=== PATIENT | male | born 1950 | race Caucasian/White ===

== ENCOUNTER 2017-12-30 08:31 | Inpatient (IN) ==
[2017-12-30] MEDS ORDERED: Heparin 10,000 UNITS/10 ML Vial (for IV use) IV.PUSH STA (08:38)
--- NOTE | 2017-12-30 08:44 | ED ---
HPI General Chief Complaint: STEMI Alert Stated Complaint: Stemi Alert Time Seen by Provider: 12/30/17 08:35 Source: patient and EMS Mode of arrival: ambulatory Limitations: no limitations History of Present Illness HPI narrative: The patient 59 years old and arrives to the ED as a STEMI alert. He sat down after a large breakfast this morning and developed severe chest pain. EMS reports administering 0.8 mg sublingual nitro as well as 324 mg aspirin and 4 mg morphine. Pain started 45 minutes prior to ER arrival. Blood glucose 148 on scene. Heart rate approximately 70s. Blood pressure 120/74 according to EMS. Upon arrival to the ED the patient complains of 7/10 chest pain and thirst. He states there is radiation to the left arm. He denies a family history coronary artery disease. He has a history of hypertension. There is no history of diabetes or hyperlipidemia. Review of the records show a visit to the family medicine service once previously for chronic musculoskeletal pain and he chose to follow-up elsewhere since. MD complaint: chest pain STEMI Alert: Yes Onset (ago): minute(s) (45) Time: 07:40 Duration: constant Onset: after eating Pain location: left chest Severity: moderate Severity scale (1-10): 7 Quality: aching Pain radiation: LUE Relieving factors: nitroglycerin and medication-other (Morphine) Exacerbating factors: nothing Context: other Associated symptoms: diaphoresis Treatments prior to arrival chest pain: aspirin, nitroglycerin and oxygen Related Data Home Medications Medication Instructions Recorded Confirmed amlodipine 10 mg PO DAILY 12/30/17 12/30/17 Allergies Allergy/AdvReac Type Severity Reaction Status Date / Time No Known Allergies Allergy Verified 12/30/17 09:16 Review of Systems ROS Unobtainable ROS Unobtainable: other PMFSH Medical History Medical History HTN (hypertension) (Acute) Social History Social History Substance History: No History of Abuse Smoking Status: Never smoker How Often Do You Have a Drink Containing Alcohol: Never Recent Travel in [facility] within the Last 8 Weeks: No Recent Out of Country Travel within the Last 8 Weeks: No Exam Narrative Exam Narrative: GENERAL: 67-year-old male well-nourished well-developed moderate to severe distress SKIN: Pale and diaphoretic. HEAD: Atraumatic. Normocephalic. EYES: Pupils equal and round. No scleral icterus. No injection or drainage. ENT: No nasal bleeding or discharge. Mucous membranes pink and moist. NECK: Trachea midline. No JVD. CARDIOVASCULAR: Regular rate and rhythm. No murmur appreciated. RESPIRATORY: No accessory muscle use. Clear to auscultation. Breath sounds equal bilaterally. GASTROINTESTINAL: Abdomen soft, non-tender, nondistended. Hepatic and splenic margins not palpable. MUSCULOSKELETAL: No obvious deformities. No clubbing. No cyanosis. No edema. NEUROLOGICAL: Awake and alert. No obvious cranial nerve deficits. Motor grossly within normal limits. Normal speech. PSYCHIATRIC: Appropriate mood and affect; insight and judgment normal. Course Initial Documented Vital Signs Pulse Oximetry 98 12/30/17 08:35 Last Documented Vital Signs Temperature 98.2 F 12/30/17 08:36 Pulse Rate 67 12/30/17 09:05 Respiratory Rate 22 12/30/17 09:05 Blood Pressure 136/78 12/30/17 09:05 Pulse Oximetry 100 12/30/17 09:05 Critical Care Time Critical Care Time: Yes Total Critical Care Time: 45 Attestation: Aggregate critical care time was 45 minutes. Time to perform other separately billable procedures was not included in the critical care time. My time did not include minutes spent treating any other patients simultaneously or on activities that did not directly contribute to the patient's treatment. The services I provided to this patient were to treat and/or prevent clinically significant deterioration that could result in: Cardiopulmonary arrest, permanent disability I provided critical care services requiring my management, as noted below: Chart data review, documentation time, medication orders and management, vital sign assessments/reviewing monitor data, ordering and reviewing lab tests, ordering and interpreting/reviewing x-rays and diagnostic studies, care of the patient and discussion of the patient with the admitting physicians. Medical Decision Making MDM Narrative Medical decision making narrative: Patient rises STEMI alert. STEMI protocol activated including heparin. Vital signs stable. Dr. Cantu evaluated the patient at the bedside shortly following arrival. The patient will go to the [facility] stat stat. Throughout his ED stay he did complain of persistent pain in about 15 minutes prior to his transfer a patient received 0.75 mg IV hydromorphone and Zofran. Patient request for on-call sausage stringer noted and call was made once a voice message left with the patient was here. A second call was placed at 10:15 AM after the patient had been transferred. Family updated by the undersigned here in the ED. Medical Screen Exam Complete: Yes Emergency Medical Condition: Yes Differential Diagnosis Differential Diagnosis: NSTEMI, unstable angina, coronary vasospasm, PE, PTX, aortic dissection, pericarditis, myocarditis, endocarditis, PNA, esophageal disease, aneurysm, musculoskeletal etiologies, anxiety, cocaine/sympathomimetic abuse Medical Records Medical records reviewed: Yes I reviewed the patient's medical records. 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 Lab Data Result diagrams: 12/30/17 08:40 Lab Results 12/30/17 12/30/17 12/30/17 Range/Units 08:40 08:40 08:40 WBC 11.0 (4.0-11.0) th/mm3 RBC 4.74 (4.50-5.90) mil/mm3 Hgb 14.7 (13.0-17.0) gm/dL POC Hgb (Calc) 12.9 L (13.0-17.0) g/dL Hct 42.9 (39.0-51.0) % POC Hct 38.0 L (39-51.0) % MCV 90.5 (80.0-100.0) fL MCH 31.0 (27.0-34.0) pg MCHC 34.2 (32.0-36.0) % RDW 13.4 (11.6-17.2) % Plt Count 233 (150-450) th/mm3 MPV 8.4 (7.0-11.0) fL Neut % (Auto) 43.6 (16.0-70.0) % Lymph % (Auto) 33.7 (9.0-44.0) % Harney % (Auto) 10.6 H (0.0-8.0) % Eos % (Auto) 11.1 H (0.0-4.0) % Baso % (Auto) 1.0 (0.0-2.0) % Neut # (Auto) 4.8 (1.8-7.7) th/mm3 Lymph # (Auto) 3.7 (1.0-4.8) th/mm3 Harney # (Auto) 1.2 H (0.0-0.9) th/mm3 Eos # (Auto) 1.2 H (0.0-0.4) th/mm3 Baso # (Auto) 0.1 (0.0-0.2) th/mm3 WBC Differential . Differential Comment Auto diff final PT 10.3 (9.8-11.6) sec INR 1.0 Ratio APTT 20.9 L (24.3-30.1) sec POC Sodium 142 (137-144) mmol/L POC Potassium 3.4 L (3.6-5.0) mmol/L POC Chloride 105 (102-111) mmol/L POC BUN 26 H (5-21) mg/dL POC Creatinine 1.3 (0.6-1.3) mg/dL POC Glucose 128 H (68-110) mg/dL Calcium 8.0 L (8.5-10.1) mg/dL Magnesium 2.1 (1.5-2.5) mg/dL Total Creatine Kinase 118 (39-308) U/L CK-MB (CK-2) 1.8 (0.5-3.6) ng/mL Troponin I Less than 0.02 L (0.02-0.05) ng/mL B-Natriuretic Peptide (0-100) pg/mL 12/30/17 Range/Units 08:40 WBC (4.0-11.0) th/mm3 RBC (4.50-5.90) mil/mm3 Hgb (13.0-17.0) gm/dL POC Hgb (Calc) (13.0-17.0) g/dL Hct (39.0-51.0) % POC Hct (39-51.0) % MCV (80.0-100.0) fL MCH (27.0-34.0) pg MCHC (32.0-36.0) % RDW (11.6-17.2) % Plt Count (150-450) th/mm3 MPV (7.0-11.0) fL Neut % (Auto) (16.0-70.0) % Lymph % (Auto) (9.0-44.0) % Harney % (Auto) (0.0-8.0) % Eos % (Auto) (0.0-4.0) % Baso % (Auto) (0.0-2.0) % Neut # (Auto) (1.8-7.7) th/mm3 Lymph # (Auto) (1.0-4.8) th/mm3 Harney # (Auto) (0.0-0.9) th/mm3 Eos # (Auto) (0.0-0.4) th/mm3 Baso # (Auto) (0.0-0.2) th/mm3 WBC Differential Differential Comment PT (9.8-11.6) sec INR Ratio APTT (24.3-30.1) sec POC Sodium (137-144) mmol/L POC Potassium (3.6-5.0) mmol/L POC Chloride (102-111) mmol/L POC BUN (5-21) mg/dL POC Creatinine (0.6-1.3) mg/dL POC Glucose (68-110) mg/dL Calcium (8.5-10.1) mg/dL Magnesium (1.5-2.5) mg/dL Total Creatine Kinase (39-308) U/L CK-MB (CK-2) (0.5-3.6) ng/mL Troponin I (0.02-0.05) ng/mL B-Natriuretic Peptide 29 (0-100) pg/mL Imaging Data Radiologist's impression: Chest X-Ray 12/30/17 08:38 CONCLUSION: Questionable hazy opacity at the left base could be related to technical factors /artifact or could represent small effusion or airspace opacity. If needed, good inspiratory formal PA and lateral views would likely help differentiate. ECG Data EKG Prior to Arrival: Yes (EKG shows sinus rhythm with a rate of 70 ST elevations are present in the 2 3 and 4 with reciprocal changes in III and aVF) Discharge Plan Discharge Disposition Patient Disposition: 30 Still Patient Physicians Team ED Provider: Inder Oropeza Primary Care Provider: UNKNOWN, Attending Provider: Chelsy Cantu Status ED Status: Left Department Discharge Information Discharge Date/Time: 12/30/17 09:08
[2017-12-30] MEDS ORDERED: Sod Chloride 0.9% Inj 1,000 ML IV.SIG SCH (08:45)
[2017-12-30] MEDS ORDERED: fentaNYL Citrate Inj 100 MCG/2 ML Ampul ONE (08:54)
[2017-12-30] MEDS ORDERED: HYDROmorphone PF Inj 2 MG/ML Vial IV.PUSH ONE (08:55)
[2017-12-30 08:56] LABS: Baso # (Auto) 0.1 th/mm3 (0.0-0.2); Eos # (Auto) 1.2 th/mm3 (0.0-0.4); Eos % (Auto) 11.1 % (0.0-4.0); Hematocrit 42.9 % (39.0-51.0); Hemoglobin 14.7 gm/dL (13.0-17.0); Lymph # (Auto) 3.7 th/mm3 (1.0-4.8); Lymph % (Auto) 33.7 % (9.0-44.0); Mean Corpuscular HGB Conc 34.2 % (32.0-36.0); Mean Corpuscular Volume 90.5 fL (80.0-100.0); Mean Platelet Volume 8.4 fL (7.0-11.0); Mono # (Auto) 1.2 th/mm3 (0.0-0.9); Mono % (Auto) 10.6 % (0.0-8.0); Neut # (Auto) 4.8 th/mm3 (1.8-7.7); Neut % (Auto) 43.6 % (16.0-70.0); Platelet Count 233 th/mm3 (150-450); Red Blood Count 4.74 mil/mm3 (4.50-5.90); Red Cell Distribution Width 13.4 % (11.6-17.2)
[2017-12-30] MEDS ORDERED: Heparin 10,000 UNITS/10 ML Vial (for IV use) ONE (09:04)
--- NOTE | 2017-12-30 09:05 | XR ---
EXAM DATE: 12/30/2017 8:38 AM EDT AGE/SEX: 67 years / Male INDICATIONS: Chest pain. CLINICAL DATA: This is the patient's initial encounter. Patient reports that signs and symptoms have been present for 1 day and indicates a pain score of 10/10. MEDICAL/SURGICAL HISTORY: None. None. COMPARISON: No prior exams available for comparison. FINDINGS: Portable AP view of the chest demonstrates a normal size cardiac silhouette. Lungs are underinflated. Questionable hazy opacity in the left inferior hemithorax. No pneumothorax is identified. Right lung demonstrates no acute finding. There may be a calcified granuloma in the right lower lung zone. Bone s and soft tissues demonstrate no acute abnormality. CONCLUSION: Questionable hazy opacity at the left base could be related to technical factors/artifact or could re present small effusion or airspace opacity. If needed, good inspiratory formal PA and lateral views w ould likely help differentiate. Electronically signed by: Massimo Swenson MD 12/30/2017 9:04 AM EDT
[2017-12-30 09:11] LABS: Prothrombin Time 10.3 sec (9.8-11.6)
[2017-12-30 09:14] LABS: Activated Partial Thrombo Time 20.9 sec (24.3-30.1)
[2017-12-30 09:17] LABS: Magnesium 2.1 mg/dL (1.5-2.5)
[2017-12-30 09:20] LABS: Creatine Kinase 118 U/L (39-308)
[2017-12-30] MEDS ORDERED: Heparin/NS PF Inj 1,000 ML ONE (09:29)
[2017-12-30 09:31] LABS: Creatine Kinase MB 1.8 ng/mL (0.5-3.6)
[2017-12-30] MEDS ORDERED: Cangrelor Inj 50,000 MCG Vial ONE (09:40)
[2017-12-30] MEDS ORDERED: Iohexol 350 MG/ML 100 ML Vial (for Cath Lab) IVCONTRAST ONE (10:36)
--- NOTE | 2017-12-30 10:51 | CATHPROC ---
[facility] HIS Report Study Information Study Number Admission Scheduled Start Study Start [id number] Dec 30 2017 8:47AM 12/30/2017 Dec 30 2017 9:04AM [place] [facility] Cardiac Catheterization Admit Source Facility Department Emergency department [facility] - Computer Systems Technology Instructor Physician and Clinical Staff Initial Chelsy Rea Deputy Of Counter Intelligence Becky Goodrich,TAMIKO Deputy Of Counter Intelligence Becky Carlson RN/BA Recorder Nafisa Cordon RT(R) (BS) Scrub Eduard Regan RCIS(BS) Procedures Performed Procedure Location (Site) Vessel Name Coronary Angiograms LCA Left Coronary Coronary Angiograms RCA Right Coronary Drug Eluting Inflatio LAD Prox Left Coronary L Heart Cath PTCA LAD Prox Left Coronary PTCA Radial (right) Radial Art. Wire insertion Fem Art (right) Femoral Art Wire insertion Radial (right) Radial Art. Equipment Time Tractor Trailer Driver Description Size Mfg Part Number Used/Scraped 10:01 [employer] WIRE, DOC EXTENSION 145CM 145CM [id number] *[id number] Used TRANSDUCER, TRUWAVE [id number] 09:06 HEIN FRYE * Used W/STOCKCOCK *[id number] 09:25 [employer] WIRE, SAMURAI 190CM 190CM Used *[id number] 09:47 [employer] WIRE, SAMURAI 190CM 190CM Used *[id number] 09:48 [employer] WIRE, SAMURAI 190CM 190CM Used *[id number] 09:06 [facility] SUPPORT, ARTERIAL ADULT [id number] Used [id number] 09:06 [employer] NEEDLE, PERCUTANEOUS ENTRY 21G X 2.5CM Used *[id number] *[id number] *[id number] 09:06 [employer] BLANKET,WARM AIR CCL * Used *[id number] 09:06 [employer] PACK, CCL CUSTOM * Used *[id number] 09:27 [employer] BALLOON, 2.5 X 12MM EUPHORA 12MM Used *[id number] 10:22 [employer] BALLOON, 3.0 X 12MM EUPHORA 12MM Used *[id number] BALLOON, 3.0 X 12MM NC [id number] 10:07 [employer] 12MM Used EUPHORA *[id number] BALLOON, 3.25 X 8MM NC [id number] 10:30 [employer] 8MM Used EUPHORA *[id number] 09:20 [employer] JR 4.0 DXTERITY CATHETER FR 6 [id number] 10:26 [employer] STENT, 3.0 15MM CODY 3.0 15MM Used *[id number] 09:35 [employer] 30 SAMANTHA INDEFLATOR Used *[id number] BAND, RADIAL COMPRESSION TR [id number] 10:36 [employer] 29CM Used LARGE 29 *[id number] 09:18 [employer] SHEATH, FR6 PRELUDEIDEAL FR 5/6 Used *[id number] 09:06 [employer] WIRE, EXCHANGE 260CM 3MMJ 260CM Used *[id number] 09:06 NAMIC MANIFOLD, 4 PORT * Used *[id number] 09:06 [employer] OMNIPAQUE, 350 MG, 150ML 150ML [id number] Used 10:30 [employer] OMNIPAQUE, 350 MG, 150ML 150ML [id number] Used 10:30 [employer] OMNIPAQUE, 350 MG, 150ML 150ML [id number] Used 10:30 [employer] OMNIPAQUE, 350 MG, 50ML 50ML [id number] Used WIRE, RUNTHROUGH NS FLOPPY 25-1011 10:14 [employer] 180CM Used .014 180CM *[id number] WIRE, RUNTHROUGH NS FLOPPY 25-1011 10:18 [employer] 180CM Used .014 180CM *[id number] WIRE, RUNTHROUGH NS FLOPPY 25-1011 09:56 [employer] 180CM Used .014 180CM *[id number] CATHETER, TURNPIKE SPIRAL 09:49 [employer] * 5642 *[id number] Used 135CM Equipment Model, Serial, Lot Number and Expiration Data Description Model Number Serial Number Lot Number Expiration Date JR 4.0 DXTERITY CATHETER [id number] 09-27-2020 STENT, 3.0 15MM CODY [id number] 07-18-2019 WIRE, SAMURAI 190CM [id number] 08-13-2020 WIRE, SAMURAI 190CM [id number] 08-13-2020 History: Current Medications Medication Dosage/Unit Route Frequency Last Date/Time Taken ASA HEPARIN History: Allergies Allergy Reaction No Known Allergies History: Risk Factors Family History of Hypertension Dyslipidemia Previous IN Previous Heart Failure Premature CAD Yes No No No No Prior Valve Prior PCI Prior CABG Surgery No No No Cerebrovascular Peripheral Artery Chronic Lung On Dialysis Diabetes Disease Disease Disease No No No No No History: Symptoms/Diagnosis Selection Items Chest pain History: Stress Tests Stress or Imaging Studies Performed No History: Other Current Smoker No Labs Hgb (g/dl) Hct (%) WBC (l/cumm) Platelets (thousands) 11.60-17.00 35.00-51.00 4.00-11.00 150.00-450.00 12.9 38 11 233 Glucose (mg/dl) BUN (mg/dl) Creatinine (mg/dl) BUN:Creatinine (1:x) 74.00-106.00 7.00-18.00 0.50-1.30 10.00-20.00 128 26 1.3 20 Na (meq/l) K (meq/l) 136.00-145.00 3.50-5.10 160 3.4 INR (PTT:PT) 0.90-1.10 1 Troponin I (ng/ml) CPK-MB (ng/ML) 0.02-0.05 0.50-3.60 0.02 1.8 Medication Medication Total Dose (Bolus/Oral) Medication Total Dosage/Unit 1% XYLOCAINE 1 mL BRILINTA 180 mg FENTANYL 75 mcg HEPARIN 7000 units MORPHINE 4 mg NTG (IC) 400 mcg RADIAL COCKTAIL 5 mL (Bolus) VERSED 5 mg Medications (Bolus/Oral) Medication Time Given Dosage/Unit Administered By Reason VERSED 12/30/2017 9:14:11 AM 2 mg Becky Carlson 2 mg VERSED given in lab by Becky Carlson, RN/BA in Left Antecubital via Peripheral IV. FENTANYL 12/30/2017 9:15:22 AM 50 mcg Becky Carlson 50 mcg FENTANYL given in lab by Becky Carlson, RN/BA in Left Antecubital via Peripheral IV. 1% XYLOCAINE 12/30/2017 9:16:57 AM 1 mL Chelsy Cantu 1 mL 1% XYLOCAINE given in lab by Chelsy Cantu in Right Radial via Subcutaneous. VERSED 12/30/2017 9:18:12 AM 1 mg Becky Carlson 1 mg VERSED given in lab by Becky Carlson RN/SRAVANTHI in Left Antecubital via Peripheral IV. Ntg 200mcg Verapamil 2.5mg Heparin RADIAL COCKTAIL 12/30/2017 9:18:12 AM 5 mL (Bolus) Chelsy Cantu 2000U 5 mL (Bolus) RADIAL COCKTAIL given in lab by Chelsy Cantu via Radial. Using [Solution Name]. Reason: Ntg 200mcg Verapamil 3mg FENTANYL 12/30/2017 9:20:21 AM 25 mcg Becky Carlson 25 mcg FENTANYL given in lab by Becky Carlson RN/SRAVANTHI in Left Antecubital via Peripheral IV. HEPARIN 12/30/2017 9:21:21 AM 5000 units Becky Carlson 5000 units HEPARIN given in lab by Becky Carlson RN/SRAVANTHI in Left Antecubital via Peripheral IV. MORPHINE 12/30/2017 9:44:36 AM 4 mg Becky Carlson 4 mg MORPHINE given in lab by Becky Carlson RN/SRAVANTHI via Peripheral IV. VERSED 12/30/2017 9:49:32 AM 2 mg Becky Carlson 2 mg VERSED given in lab by Becky Carlson RN/SRAVANTHI in Left Antecubital via Peripheral IV. NTG (IC) 12/30/2017 9:57:03 AM 200 mcg Eduard Regan 200 mcg NTG (IC) given in lab by Eduard Regan RCIS(BS) via Intra-coronary. HEPARIN 12/30/2017 10:21:34 AM 2000 units Becky Carlson 2000 units HEPARIN given in lab by Becky Carlson RN/SRAVANTHI in Left Antecubital via Peripheral IV. NTG (IC) 12/30/2017 10:34:28 AM 200 mcg Eduard Regan 200 mcg NTG (IC) given in lab by Eduard Regan RCIS(BS) via Intra-coronary. BRILINTA 12/30/2017 10:49:28 AM 180 mg Becky Goodrich 180 mg BRILINTA given in lab by Becky Goodrich RN via Oral. Medication (Drip) Medication Time Given Dosage/Unit Concentration/Unit Diluent (ml) Solution IV Solutions 12/30/2017 9:08:21 AM 0 mL (IV) 1000 NaCl .9 IV Solutions given by Becky Goodrich RN via Peripheral IV. Pump/Drip Flow = 30 ml/hr using NaCl .9. KENGREAL BOLUS 12/30/2017 9:46:39 AM 30 mcg/kg 30 mcg/kg KENGREAL BOLUS given in lab by Becky Goodrich RN in Left Antecubital via Peripheral IV. A mount given = 3270 mcg. KENGREAL DRIP 12/30/2017 9:45:54 AM 4 mcg/kg/min 50 mg 250 NaCl .9 4 mcg/kg/min KENGREAL DRIP given in lab by Becky Goodrich, TAMIKO via Peripheral IV. Pump/Drip Flow = 13 0.8 ml/hr using NaCl .9 with a concentration of 50 mg in 250 ml. Initial Case Assessment Cardiovascular HR Rhythm NIBP Chest Pain 67 stemi 128/78 9 Edema Present Skin color Skin Mild Normal Warm Dry Circulatory - Right Pulses Dorsalis Pedis Femoral Radial 1 2 2 Scale (0,1,2,3,4,d) Scale (0,1,2,3,4,d) Circulatory - Lower Extremities Color Lower Right Color Lower Left Normal Normal Neurological State Oriented to time-place- Alert Moves all extremities person Respiration - General Respiration Rate SpO2 (%) O2 (lpm) (B/min) 14 100 15 Chronological Log Time Study Chronological Log 8:56:41 Emergency Room notified that Computer Systems Technology Instructor is ready. 9:06:11 Patient arrived via Bed. 9:06:12 Patient Name, D.O.B, / Armband Verified By R.N. 9:08:21 IV Solutions given by Becky Goodrich, TAMIKO via Peripheral IV. Pump/Drip Flow = 30 ml/hr usin g NaCl .9. 9:13:25 Right Radial and groin(s) prepped with 2% chlorhexidine, and draped after a 3 min. waiting time. 9:14:11 2 mg VERSED given in lab by Becky Carlson, RN/BA in Left Antecubital via Peripheral IV. 9:15:22 50 mcg FENTANYL given in lab by Becky Carlson, RN/BA in Left Antecubital via Peripheral IV. Vitals capture started with the following parameters, Patient=Adult, Interval=5 min, Initial Pr dfqpir=683 mmHg, 9:15:25 Deflation Rate=5 mmHg, Cuff placed on Left Arm 9:15:36 Consent signed by the physician and the patient and verified by the Computer Systems Technology Instructor staff. 9:15:45 Pre-op and post- op instructions given; patient acknowledges understanding of instructions. 9:15:47 Presedation assessment performed by Computer Systems Technology Instructor RN. 9:15:51 Allens test performed on the right radial and ulnar artery. 9:16:09 Patient has been NPO for Less than 6Hrs. 9:16:15 Disposable Defibrillator Pads Placed On Patient. 9:16:16 [employer] Protected 9:16:17 A # 18 IV was noted in the Antecubital (right). Grade = 0 9:16:18 A # 18 IV was noted in the Antecubital (left). Grade = 0 9:16:22 History and physical on the chart or being dictated. Assessment: Initial Case, HR=67 BPM, Rhythm=stemi, PSGI=237/78 mmhg, Chest Pain=9, Edema=Mild, Color=Normal, Skin = Warm, Dry Right Pulses: Lucio Ped=1, Femoral=2, Radial=2 9:16:23 Lower Right Extremities: Color=Normal Lower Left Extremities: Color=Normal Neurological: State=Alert, Ox3, MORA Respiration: Resp=14 B/min, AiJ6=173 %, O2=15 lpm Time Out. Correct patient, correct procedure, correct physician, labs, allergies, and equipment verified with lab instructor 9:16:41 team present. Fire risk assesment completed (see hard stop sheet for coding). Time Out Concu rred by MD and individual staff in procedure. 9:16:45 Case Start 9:16:46 HR=66 bpm, TGHL=320/96 mmhg, SyU8=044.0 %, Resp=5 B/min, Pain=9, Steve=10, Cm=2 9:16:57 1 mL 1% XYLOCAINE given in lab by Chelsy Cantu in Right Radial via Subcutaneous. 9:17:09 Reference ECG taken 9:17:19 Access site was Right Radial Artery . 9:17:27 A SHEATH, FR6 PRELUDEIDEAL FR 5/6 was advanced into the Radial (right) using the Percutaneou s technique. 9:18:12 1 mg VERSED given in lab by Becky Carlson, RN/BA in Left Antecubital via Peripheral IV. 5 mL (Bolus) RADIAL COCKTAIL given in lab by Cantu, Aalok via Radial. Using [Solution Name]. [place] son: Ntg 200mcg 9:18:12 Verapamil 3mg 9:18:45 Pressure channel 1 zeroed. A JR 4.0 DXTERITY CATHETER FR 6 was advanced over a wire. OMNIPAQUE, 350 MG, 150ML 150ML was use d for 9:20:05 injections. 9:20:21 25 mcg FENTANYL given in lab by Becky Carlson RN/SRAVANTHI in Left Antecubital via Peripheral IV. 9:21:10 HR=68 bpm, NNUW=417/83 mmhg, CpJ1=480.0 %, Resp=11 B/min, Pain=9, Steve=10, Cm=2 9:21:21 5000 units HEPARIN given in lab by Becky Carlson RN/SRAVANTHI in Left Antecubital via Peripheral IV. Recorded Pressure: Ao, HR=64, Condition=Condition 1 9:21:27 (Aorta) Ao 130/78/102 9:21:54 The RCA was injected and visualized at various angles. OMNIPAQUE, 350 MG, 150ML 150ML used. After removing the current catheter a XB 3.0 GUIDE CATHETER FR 6 was advanced over a WIRE, EXCHA NGE 260CM 9:22:53 3MMJ 260CM. 9:25:33 The LCA was injected and visualized at various angles. OMNIPAQUE, 350 MG, 150ML 150ML used. 9:26:11 HR=71 bpm, ZIGL=669/87 mmhg, BpE6=207.0 %, Resp=14 B/min, Pain=9, Steve=10, Cm=2 9:28:03 A WIRE, SAMURAI 190CM 190CM was inserted via Radial (right). 9:31:01 A BALLOON, 2.5 X 12MM EUPHORA 12MM was inserted over WIRE, SAMURAI 190CM 190CM via the Radia l (right). 9:31:10 HR=69 bpm, YNOY=497/87 mmhg, DvB3=750.0 %, Resp=12 B/min, Pain=9, Steve=10, Cm=2 9:34:02 Interventional wire has crossed the lesion A BALLOON, 2.5 X 12MM EUPHORA 12MM over a WIRE, SAMURAI 190CM 190CM in the LAD Prox was inflated using a 9:35:03 30 SAMANTHA INDEFLATOR at 8 samantha for 10 sec. 9:36:09 HR=69 bpm, HDWD=024/87 mmhg, UgC4=331.0 %, Resp=23 B/min, Pain=9, Steve=10, Cm=2 9:39:05 Balloon Removed 9:39:18 Wire removed for reshaping 9:40:00 A WIRE, MERONURAI 190CM 190CM was inserted via Radial (right). 9:41:10 HR=72 bpm, QQIW=804/90 mmhg, SpO2=97.0 %, Resp=15 B/min, Pain=9, Steve=10, Cm=2 9:44:32 A balloons was inserted over WIRE, MERONURAI 190CM 190CM via the Radial (right). 9:44:36 4 mg MORPHINE given in lab by Becky Carlson, RN/BA via Peripheral IV. 4 mcg/kg/min KENGREAL DRIP given in lab by Becky Goodrich RN via Peripheral IV. Pump/Drip Flow = 130.8 ml/hr 9:45:54 using NaCl .9 with a concentration of 50 mg in 250 ml. 9:46:11 HR=72 bpm, GZRQ=213/92 mmhg, Resp=8 B/min, Pain=9, Steve=10, Cm=2 30 mcg/kg KENGREAL BOLUS given in lab by Becky Goodrich RN in Left Antecubital via Peripheral IV. Amount given = 9:46:39 3270 mcg. Recorded Pressure: LV, HR=75, Condition=Condition 1 9:47:17 (Left Ventricle) LV 135/19/39 Recorded Pressure: LV, Ao, HR=73, Condition=Condition 1 9:47:28 (Left Ventricle) LV 140/18/40, (Aorta) Ao 145/82/105 9:47:58 Balloon Removed. 9:48:03 Wire removed 9:48:13 A WIRE, MERONURAI 190CM 190CM was inserted via Radial (right). A CATHETER, TURNPIKE SPIRAL 135CM * was advanced over a wire. OMNIPAQUE, 350 MG, 150ML 150ML wa s used 9:48:32 for injections. 9:49:32 2 mg VERSED given in lab by Becky Carlson, RN/BA in Left Antecubital via Peripheral IV. 9:51:12 HR=70 bpm, FBJL=807/89 mmhg, OtM5=854.0 %, Resp=9 B/min, Pain=9, Steve=10, Cm=2 9:56:14 HR=67 bpm, NRLE=250/82 mmhg, WgD8=030.0 %, Resp=7 B/min, Pain=9, Steve=10, Cm=2 9:57:03 200 mcg NTG (IC) given in lab by Eduard Regan RCIS(BS) via Intra-coronary. 9:58:38 A WIRE, SAMURAI 190CM 190CM was inserted via Radial (right). 10:01:11 HR=73 bpm, YJIH=116/89 mmhg, Resp=17 B/min, Pain=9, Steve=10, Cm=2 10:02:08 A WIRE, DOC EXTENSION 145CM 145CM was used 10:03:10 Wire removed turnpike A BALLOON, 2.5 X 12MM EUPHORA 12MM was inserted over WIRE, RUNTHROUGH NS FLOPPY .014 180CM 180C M via 10:04:17 the Radial (right). A BALLOON, 2.5 X 12MM EUPHORA 12MM over a WIRE, SAMURAI 190CM 190CM in the Radial (right) was i nflated 10:04:42 using a 30 SAMANTHA INDEFLATOR at 12 samantha for 15 sec. A BALLOON, 2.5 X 12MM EUPHORA 12MM over a WIRE, SAMURAI 190CM 190CM in the Radial (right) was i nflated 10:05:05 using a 30 SAMANTHA INDEFLATOR at 14 samantha for 10 sec. 10:06:12 HR=68 bpm, REVW=480/84 mmhg, XrP5=239.0 %, Resp=16 B/min, Pain=9, Steve=10, Cm=2 10:08:32 Balloon Removed A BALLOON, 3.0 X 12MM NC EUPHORA 12MM was inserted over WIRE, RUNTHROUGH NS FLOPPY .014 180CM 1 80CM 10:08:39 via the Radial (right). A BALLOON, 3.0 X 12MM NC EUPHORA 12MM over a WIRE, RUNTHROUGH NS FLOPPY .014 180CM 180CM in the LAD 10:09:12 Prox was inflated using a 30 SAMANTHA INDEFLATOR at ~SAMANTHA~ samantha for ~SECONDS~ sec. 10:11:13 HR=68 bpm, LDNU=023/84 mmhg, YdG0=633.0 %, Resp=9 B/min, Pain=9, Steve=10, Cm=2 10:15:26 A WIRE, RUNTHROUGH NS FLOPPY .014 180CM 180CM was inserted via Radial (right). 10:16:12 HR=66 bpm, XAVY=316/89 mmhg, OuB1=081.0 %, Resp=13 B/min, Pain=9, Steve=10, Cm=2 10:17:41 Wire removed 10:17:46 A WIRE, RUNTHROUGH NS FLOPPY .014 180CM 180CM was inserted via Radial (right). 10:21:15 HR=64 bpm, VAIV=943/88 mmhg, IzM4=582.0 %, Resp=9 B/min, Pain=9, Steve=10, Cm=2 10:21:34 2000 units HEPARIN given in lab by Becky Carlson, RN/BA in Left Antecubital via Peripheral IV. A BALLOON, 3.0 X 12MM NC EUPHORA 12MM over a WIRE, RUNTHROUGH NS FLOPPY .014 180CM 180CM in the LAD 10:24:02 Prox was inflated using a 30 SAMANTHA INDEFLATOR at 8 samantha for 10 sec. A BALLOON, 3.0 X 12MM NC EUPHORA 12MM over a WIRE, RUNTHROUGH NS FLOPPY .014 180CM 180CM in the LAD 10:24:35 Prox was inflated using a 30 SAMANTHA INDEFLATOR at 14 samantha for 30 sec. 10:26:14 HR=66 bpm, YFWT=625/84 mmhg, NlO3=725.0 %, Resp=11 B/min, Pain=9, Steve=10, Cm=2 10:26:47 Balloon Removed A STENT, 3.0 15MM CODY 3.0 15MM was advanced through a XB 3.0 GUIDE CATHETER FR 6 over a WIRE, 10:27:37 RUNTHROUGH NS FLOPPY .014 180CM 180CM. A STENT, 3.0 15MM CODY 3.0 15MM was deployed using a 30 SAMANTHA INDEFLATOR at 14 atmospheres for 2 0 seconds in 10:27:57 the LAD Prox. 10:29:17 Delivery device removed A BALLOON, 3.25 X 8MM NC EUPHORA 8MM was inserted over WIRE, RUNTHROUGH NS FLOPPY .014 180CM 1 80CM 10:30:34 via the Radial (right). 10:31:13 HR=65 bpm, MYUM=330/88 mmhg, SpO2=86.0 %, Resp=10 B/min, Pain=9, Steve=10, Cm=2 A BALLOON, 3.25 X 8MM NC EUPHORA 8MM over a WIRE, RUNTHROUGH NS FLOPPY .014 180CM 180CM in the LAD 10:32:54 Prox was inflated using a 30 SAMANTHA INDEFLATOR at 20 samantha for 15 sec. 10:34:03 Balloon Removed 10:34:09 Wire removed 10:34:28 200 mcg NTG (IC) given in lab by Eduard Regan RCIS(BS) via Intra-coronary. 10:35:45 The LCA was injected and visualized at various angles. OMNIPAQUE, 350 MG, 150ML 150ML use d. 10:35:56 A WIRE, EXCHANGE 260CM 3MMJ 260CM was inserted via Radial (right). 10:36:12 Catheter was removed 10:36:14 HR=68 bpm, AKDE=079/83 mmhg, SpO2=94.0 %, Resp=12 B/min, Pain=9, Steve=10, Cm=2 10:36:14 Wire removed 10:36:29 Case End (Physician broke scrub) 10:36:52 Catheter(s) removed without difficulty Radial Compression Device Used. 12 mLs of air placed in BAND, RADIAL COMPRESSION TR LARGE 29 2 9CM. Affected 10:36:58 hand 96 % O2 saturation. 10:36:59 No case complications noted. 10:37:02 Bedside Report will be given. 10:37:03 Implantable Device card placed in patient's chart. 10:37:06 A Left Heart Cath was performed. 10:41:13 HR=79 bpm, NPAM=660/83 mmhg, SpO2=97.0 %, Resp=15 B/min, Pain=9, Steve=10, Cm=2 10:45:38 Vitals capture stopped. 10:47:01 Patient moved to stretcher 10:49:28 180 mg BRILINTA given in lab by Becky Goodrich, RN via Oral. End Study - Contrast Media Used In Study Contrast Total Opened (mL) Total Used (mL) Total Wasted (mL) Omnipaque 275 275 0 End Study - Maximum Contrast Load Max Contrast Load (mL) 419.2 End Study - Radiation Exposure Fluoro Time (minutes) 39.3 End Study - Sheaths Sheaths Pulled By Sheath Hold Time (min) Eduard Regan End Study - Patient Disposition Complications Transferred To Interventional Outcome No Telemetry Bed successful
[2017-12-30 11:38] LABS: Cholesterol 93 mg/dL (120-200); Triglycerides 221 mg/dL (42-150)
[2017-12-30 11:40] LABS: LDL Cholesterol,Calculated 17 mg/dL (0-99)
--- NOTE | 2017-12-30 11:51 | ECG ---
Date Performed: 12/30/2017 Time Performed: 08:34:41 PTAGE: 67 years EKG: Baseline artifact present Sinus rhythm WITH OCCASIONAL SUPRAVENTRICULAR PREMATURE COMPLEXES LEFT ANTERIOR FASCICULAR BLOCK POSSIBLE ANTERIO R MYOCARDIAL INFARCTION ST ELEVATION, CONSIDER SEPTAL INJURY ACUTE [place] Clinical correlation is r ecommended NO PREVIOUS TRACING DOCTOR: Edwin Bolaños Interpretating Date/Time 12/30/2017 11:50:53
--- NOTE | 2017-12-30 18:35 | P.HPCA ---
History of Present Illness Service: Interventional Cardiology Primary Care Physician: UNKNOWN Chief Complaint: Chest Pain History of Present Illness: Mr. Carreon is a very pleasant 67 year old gentleman with a past medical history significant for HTN, HLD who present to the ER with complaints of substernal chest pain that began an hour prior to the arrival to the ER after eating breakfast. He had associated symptoms of nausea and diaphoresis. He reports having a stress test many years ago that was normal. He has not been having chest pain with exertion. EKG showed anterior STEMI and the labor and delivery nurse was activated. He was started on Heparin IV infusion, ASA 325mg, and was given sublingual NTG without improvement in his chest pain. Currently he is hemodynamically stable. No malignancy, no elective surgeries plan, no history of bleeding, and no other contraindications to drug eluting stents. - Diagnosis (1) ST elevation (STEMI) myocardial infarction involving left anterior descending coronary artery (2) HTN (hypertension) (3) Hyperlipidemia Inpatient Certification: I certify that the inpatient services were ordered in accordance with Medicare regulations governing the order. This includes certification that hospital inpatient services are reasonable and necessary and in the case of services not specified as inpatient-only under 42 CFR 419.22(n), that they are appropriately provided as inpatient services in accordance to with the 2-midnight benchmark under 43 CFR 412.3(e) Estimated Total Length of Stay (Days): 2 Plans for Post Hospital Care: Home Review of Systems All other systems reviewed negative except as stated in HPI [facility] - History History Provided By: Patient, Surveyor Mine / EMT - Medical History Medical History: Medical History (Last Updated 12/30/17 @ 18:30 by Chelsy Cantu MD) HTN (hypertension) Hyperlipemia Hyperlipemia - Tobacco History Smoking Status: Never smoker - Alcohol History How Often Do You Have a Drink Containing Alcohol: Never - Substance Use History Substance History: No History of Abuse - Travel History Recent Travel in the [place] Within the Last 8 Weeks: No Recent Travel Out of the Country Within the Last 8 Weeks: No - Immunization History Tetanus Immunization: Unsure Medications and Allergies Active Medications: Active Medications Atorvastatin Calcium (Lipitor) 80 mg PO HS MARILIN Carvedilol (Coreg) 3.125 mg PO BID MARILIN Sodium Chloride (Ns Inj) 1,000 mls @ 30 mls/hr IV.SIG .Q24H MARILIN Stop: 12/31/17 08:44 Last Admin: 12/30/17 08:44 Dose: 30 mls/hr Nitroglycerin (Nitro-Bid 2% Oint) 1 inch TOPICAL Q6HR MARILIN Last Admin: 12/30/17 17:08 Dose: 1 inch Ondansetron HCl (Zofran Inj) 4 mg IV.PUSH Q6H PRN PRN Reason: NAUSEA OR VOMITING Sodium Chloride (Ns Flush) 2 ml IV.FLUSH PRN PRN PRN Reason: FLUSH AFTER USING IV ACCESS Sodium Chloride (Ns Inj) 2 ml IV.FLUSH BID MARILIN Sodium Chloride (Ns Inj) 2 ml IV.FLUSH UNSCH PRN PRN Reason: FLUSH AFTER USING IV ACCESS Allergies Allergy/AdvReac Type Severity Reaction Status Date / Time No Known Allergies Allergy Verified 12/30/17 09:16 Home Medications Medication Instructions Recorded Confirmed Type amlodipine 10 mg PO DAILY 12/30/17 12/30/17 History Exam Vital signs: Vital Signs 12/30/17 08:35 12/30/17 08:36 12/30/17 08:38 Temperature 98.2 F Pulse Rate 72 Respiratory Rate 22 Blood Pressure 130/81 Pulse Oximetry 98 100 100 12/30/17 08:55 12/30/17 09:05 12/30/17 10:42 Temperature 98.4 F Pulse Rate 69 67 65 Respiratory Rate 22 20 Blood Pressure 132/67 136/78 125/87 Pulse Oximetry 100 94 L 12/30/17 11:00 12/30/17 12:00 12/30/17 13:00 Temperature Pulse Rate 64 66 66 Respiratory Rate Blood Pressure Pulse Oximetry 12/30/17 14:00 12/30/17 15:00 12/30/17 16:00 Temperature 98.5 F Pulse Rate 66 66 66 Respiratory Rate 18 Blood Pressure 121/80 Pulse Oximetry 97 12/30/17 16:08 12/30/17 17:00 Temperature Pulse Rate 80 Respiratory Rate Blood Pressure Pulse Oximetry 97 Intake & Output 12/29/17 12/30/17 12/30/17 18:59 06:59 18:59 Intake Total 1210 / 1210 Balance 1210 / 1210 Weight 109 kg Intake: IV 10 / 10 Heparin/NS PF Inj 1,000 ML @ 0 10 / 10 mls/hr .ROUTE .[facility] Rx#: [id number] Anesthesia Amount 1200 / 1200 Other: Date of Last Bowel Movement 12/30/17 - Constitutional moderate distress, diaphoretic - Routine HEENT Exam Head: Present: normocephalic Eye: Present: EOMI, PERRL ENT: Present: dentition normal - Routine Neck Exam Absent: JVD (unable to assess secondary to body habitus) - Routine Chest/Breast/Axilla Exam Chest wall: Absent: tenderness - Routine Respiratory Exam Present: accessory muscle use, decreased breath sounds - Routine Cardiovascular Exam Present: S1, S2, tachycardia. Absent: murmur - Routine Abdominal Exam Present: soft, normoactive bowel sounds - Routine Extremities Exam Absent: edema - Routine Neurological Exam Present: alert, oriented X3 Results 12/30/17 08:40 Cardiac Enzymes 12/30/17 12/30/17 12/30/17 Range/Units 08:40 08:40 08:40 CK-MB (CK-2) 1.8 (0.5-3.6) ng/mL Troponin I Less than 0.02 L Less than 0.02 L (0.02-0.05) ng/mL B-Natriuretic Peptide 29 (0-100) pg/mL 12/30/17 Range/Units 16:24 CK-MB (CK-2) (0.5-3.6) ng/mL Troponin I 20.20 H* (0.02-0.05) ng/mL B-Natriuretic Peptide (0-100) pg/mL Coagulation 12/30/17 12/30/17 Range/Units 08:40 08:40 PT 10.3 (9.8-11.6) sec APTT 20.9 L (24.3-30.1) sec B-Natriuretic Peptide 29 (0-100) pg/mL Lipids 12/30/17 Range/Units 08:40 Triglycerides 221 H (42-150) mg/dL Cholesterol 93 L (120-200) mg/dL HDL Cholesterol 32.0 L (40.0-60.0) mg/dL Cholesterol/HDL Ratio 2.90 Ratio CBC 12/30/17 Range/Units 08:40 WBC 11.0 (4.0-11.0) th/mm3 RBC 4.74 (4.50-5.90) mil/mm3 Hgb 14.7 (13.0-17.0) gm/dL Hct 42.9 (39.0-51.0) % Plt Count 233 (150-450) th/mm3 Neut # (Auto) 4.8 (1.8-7.7) th/mm3 Lymph # (Auto) 3.7 (1.0-4.8) th/mm3 [place] # (Auto) 1.2 H (0.0-0.9) th/mm3 Eos # (Auto) 1.2 H (0.0-0.4) th/mm3 Baso # (Auto) 0.1 (0.0-0.2) th/mm3 Comprehensive Metabolic Panel 12/30/17 Range/Units 08:40 Calcium 8.0 L (8.5-10.1) mg/dL Intake and Output 12/30/17 12/30/17 12/30/17 06:59 14:59 22:59 Intake Total 1210 / 1210 Balance 1210 / 1210 Intake: IV 10 / 10 Heparin/NS PF Inj 1,000 ML @ 0 10 / 10 mls/hr .[facility]TE [facility] Rx#: [id number] Anesthesia Amount 1200 / 1200 Other: Date of Last Bowel Movement 12/30/17 12/30/17 Weight 109 kg Patient Weight 12/31/17 06:59 Weight 109 kg - Imaging and Cardiology Imaging: Impressions Chest X-Ray 12/30/17 08:38 CONCLUSION: Questionable hazy opacity at the left base could be related to technical factors /artifact or could represent small effusion or airspace opacity. If needed, good inspiratory formal PA and lateral views would likely help differentiate. EKG interpretations - Blocks, axis, hypertrophy, ST abn Repolarization changes or abnormalities: ST suggestive of injury (anterior ST elevation) Caprini VTE Risk Assessment Caprini VTE Risk Assessment: Moderate/High Risk (score >= 2) Caprini Risk Assessment Model: Point Value = 1 Point Value = 2 Point Value = 3 Point Value = 5 Age 41-60 Minor surgery BMI > 25 kg/m2 Swollen legs Varicose veins or History of unexplained or recurrent spontaneous Oral contraceptives or hormone replacement Sepsis (< 1 month) Serious lung disease, including pneumonia (< 1 month) Abnormal pulmonary function Acute myocardial infarction Congestive heart failure (< 1 month) History of inflammatory bowel disease Medical patient at bed rest Age 61-74 Arthroscopic surgery Major open surgery (> 45 min) Laparoscopic surgery (> 45 min) Malignancy Confined to bed (> 72 hours) Immobilizing plaster cast Central venous access Age >= 75 History of VTE Family history of VTE Factor V Leiden Prothrombin [id number] Lupus anticoagulant Anticardiolipin antibodies Elevated serum homocysteine Heparin-induced thrombocytopenia Other congenital or acquired thrombophilia Stroke (< 1 month) Elective arthroplasty Hip, pelvis, or leg fracture Acute spinal cord injury (< 1 month) Prophylaxis Regimen: Total Risk Factor Score Risk Level Prophylaxis Regimen 0-1 Low Early ambulation 2 Moderate Order ONE of the following: *Sequential Compression Device (SCD) *Heparin 5000 units SQ BID 3-4 Higher Order ONE of the following medications: *Heparin 5000 units SQ TID *Enoxaparin/Lovenox 40 mg SQ daily (WT < 150 kg, CrCl > 30 mL/min) *Enoxaparin/Lovenox 30 mg SQ daily (WT < 150 kg, CrCl > 10-29 mL/min) *Enoxaparin/Lovenox 30 mg SQ BID (WT < 150 kg, CrCl > 30 mL/min) AND/OR *Sequential Compression Device (SCD) 5 or more Highest Order ONE of the following medications: *Heparin 5000 units SQ TID (Preferred with Epidurals) *Enoxaparin/Lovenox 40 mg SQ daily (WT < 150 kg, CrCl > 30 mL/min) *Enoxaparin/Lovenox 30 mg SQ daily (WT < 150 kg, CrCl > 10-29 mL/min) *Enoxaparin/Lovenox 30 mg SQ BID (WT < 150 kg, CrCl > 30 mL/min) AND *Sequential Compression Device (SCD) Assessment and Plan - Assessment (1) ST elevation (STEMI) myocardial infarction involving left anterior descending coronary artery Code(s): I21.02 - ST elevation (STEMI) myocardial infarction involving left anterior descending coronary artery Status: Acute Plan: We will proceed with an emergent coronary angiogram via the radial approach. Risks, benefits, and alternatives discussed. Continue IV heparin and ASA. Will plan for Cangrelor infusion during PCI. We will order a TTE. (2) HTN (hypertension) Code(s): I10 - Essential (primary) hypertension Status: Chronic Plan: Will plan to start coreg (3) Hyperlipidemia Code(s): E78.5 - Hyperlipidemia, unspecified Status: Acute Plan: Will plan to place the patient on Lipitor 80mg po qhs
--- NOTE | 2017-12-30 19:07 | P.CATH ---
- Cardiac Catheterization Procedure Date: 12/30/17 Procedure Note:: Preprocedure Dx: 1. STEMI-Anterior Postprocedure Dx: 2. Successful PCI to the Prox LAD using 1 GOMEZ Procedures Performed: 1. Coronary angiogram and LHC via the Right Radial Artery 2. Successful PCI to the proximal LAD using a 3.0 x 15 Resolute [place] GOMEZ that was postdilated with a 3.25 mm noncompliant balloon proximally Indications: The patient presented with acute onset of chest pain and anterior ST-elevation on his EKG. See H and P for details. Description of the Procedure: After discussion of risks, benefits, and alternatives the patient was brought to the dental laboratory supervisor in a non sedated state. He was sterilely prepped and draped in a usual fashion.1% lidocaine solution was used for anesthesia and we placed a 6F sheath into the right radial artery. We then used a JR4 to engage the RCA. This same catheter was used to cross the aortic valve and measure LVEDP. This was exchanged for a JL 3.0 guide to engage the Left Main. Images obtained after contrast dye injection. Findings: LVEDP: 17 mmHg, no significant gradient on aortic pullback. Right Coronary Artery: Dominant vessel that gives rise to the Posterolateral and Posterior Descending Arteries. There are minimal luminal irregularities. Left Main Coronary Artery: Large caliber vessel which trifurcates into a Left anterior Descending, Left Circumflex, and Ramus. This vessel has minimal luminal irregularities. Ramus: Moderate caliber vessel. There is mild eccentric lesion at the ostium. Remainder of the vessel has minimal luminal irregularities. Left Anterior Descending: Moderate caliber vessel that has an aneurysmal proximal segment, it is 100% occluded with fresh thrombus in the proximal segment. There is no constitution of the vessel distally Left Circumflex: Moderate caliber vessel that courses distally within the AV grove, giving rise to multiple OM. The 3rd OM has a DEBURR TECHNICIAN as well as the ongoing AV grove circ and receives collaterals from the RCA Interventional Summary: We then proceeded with planned PCI. We began an infusion of IV cangrelor and gave additional heparin. We engaged the Left Main with an XB 3.0 guide. We used a [place] wire initially, we were initially unable to wire down the ongoing LAD and our wire was preferentially into what we felt was the first diagonal. We used a 2.5 x 12 balloon to daughter and after this it became apparent we were in the first diagonal and there was flow. We pre-dilated and there was now evidence of where the takeoff of the LAD was. There was slow flow the LAD initially. We changed our views and used ultimately a Runthrough wire preloaded into a turnpike to guide us down the true LAD. We daugthered the little shell tribe LAD. We then predilated in the [place] projection. After giving nitroglycerine we had EDIS 2 -3 flow down the LAD. There did not appear to be disease at the ostium of the first diagonal. We attempted to further predilate the lesion in the proximal LAD with a 3.0 NC balloon, but we were unable to pass the balloon. Therefore, we used a 3.0 compliant balloon and were able to get expansion of the lesion. The patient report that his chest pain had resolved. We subsequently placed a 3.0 x 15 Resolute [place] to high ATMs. We then used a 3..25 NC to post-dilate the proximal vessel with the aide of stent boost. Our final result showed EDIS 3 flow, no evidence of dissection or perforation. There is some moderate diffuse disease in the LAD which is not significant. The patient tolerated the procedure well without any complications. Our guide catheter was removed over a wire and a TR band placed for hemostasis. Heparin was given throughout the case and monitored with serial ACT measurements. The patient was given Brilinta 90mg po BID at the end of the procedure. Procedural Summary: Successful PCI to the proximal LAD using 1 GOMEZ Plan: 1. Access site precautions, complete cangrelor infusion 2. ASA 81mg and Brilinta 90mg po BID x 1 year 3. TTE 4. Increase statin therapy as there is still moderate plaque in the LAD
[2017-12-31 07:52] LABS: Baso # (Auto) 0.1 th/mm3 (0.0-0.2); Baso % (Auto) 0.7 % (0.0-2.0); Eos # (Auto) 0.8 th/mm3 (0.0-0.4); Eos % (Auto) 7.7 % (0.0-4.0); Hemoglobin 14.5 gm/dL (13.0-17.0); Lymph # (Auto) 1.3 th/mm3 (1.0-4.8); Lymph % (Auto) 13.7 % (9.0-44.0); Mean Corpuscular HGB Conc 34.6 % (32.0-36.0); Mean Corpuscular Hemoglobin 31.3 pg (27.0-34.0); Mean Corpuscular Volume 90.6 fL (80.0-100.0); Mean Platelet Volume 8.3 fL (7.0-11.0); Mono # (Auto) 0.7 th/mm3 (0.0-0.9); Mono % (Auto) 7.7 % (0.0-8.0); Neut # (Auto) 6.8 th/mm3 (1.8-7.7); Neut % (Auto) 70.2 % (16.0-70.0); Platelet Count 185 th/mm3 (150-450); Red Blood Count 4.63 mil/mm3 (4.50-5.90); Red Cell Distribution Width 13.6 % (11.6-17.2); White Blood Count 9.7 th/mm3 (4.0-11.0)
[2017-12-31 08:16] LABS: Calcium 8.8 mg/dL (8.5-10.1); Carbon Dioxide 24.8 meq/L (21.0-32.0); Potassium 3.8 meq/L (3.5-5.1)
--- NOTE | 2017-12-31 09:40 | P.PNCA ---
Subjective Interval history: No acute events. Few runs of NSVT Medications and Allergies Active Medications: Active Medications Aspirin (Ecotrin) 81 mg PO DAILY [facility] Last Admin: 12/31/17 08:27 Dose: 81 mg Atorvastatin Calcium (Lipitor) 80 mg PO HS [facility] Last Admin: 12/30/17 20:23 Dose: 80 mg Carvedilol (Coreg) 3.125 mg PO BID [facility] Last Admin: 12/31/17 08:27 Dose: 3.125 mg Nitroglycerin (Nitro-Bid 2% Oint) 1 inch TOPICAL Q6HR [facility] Last Admin: 12/31/17 06:07 Dose: 1 inch Ondansetron HCl (Zofran Inj) 4 mg IV.PUSH Q6H PRN PRN Reason: NAUSEA OR VOMITING Sodium Chloride (Ns Flush) 2 ml IV.FLUSH PRN PRN PRN Reason: FLUSH AFTER USING IV ACCESS Last Admin: 12/31/17 08:29 Dose: 2 ml Sodium Chloride (Ns Inj) 2 ml IV.FLUSH BID [facility] Last Admin: 12/30/17 20:25 Dose: 2 ml Sodium Chloride (Ns Inj) 2 ml IV.FLUSH UNSCH PRN PRN Reason: FLUSH AFTER USING IV ACCESS Ticagrelor (Brilinta) 90 mg PO BID [facility] Last Admin: 12/31/17 08:27 Dose: 90 mg Allergies Allergy/AdvReac Type Severity Reaction Status Date / Time No Known Allergies Allergy Verified 12/30/17 09:16 Home Medications Medication Instructions Recorded Confirmed Type amlodipine 10 mg PO DAILY 12/30/17 12/30/17 History Physical Exam Vital signs: Vital Signs 12/30/17 10:42 12/30/17 11:00 12/30/17 12:00 Temperature 98.4 F Pulse Rate 65 64 66 Respiratory Rate 20 Blood Pressure 125/87 Pulse Oximetry 94 L 12/30/17 13:00 12/30/17 14:00 12/30/17 15:00 Temperature Pulse Rate 66 66 66 Respiratory Rate Blood Pressure Pulse Oximetry 12/30/17 16:00 12/30/17 16:08 12/30/17 17:00 Temperature 98.5 F Pulse Rate 66 80 Respiratory Rate 18 Blood Pressure 121/80 Pulse Oximetry 97 97 12/30/17 20:00 12/30/17 22:00 12/30/17 23:00 Temperature 98.2 F Pulse Rate 66 70 67 Respiratory Rate 20 Blood Pressure 135/83 Pulse Oximetry 95 12/31/17 00:00 12/31/17 01:00 12/31/17 02:00 Temperature 98 F Pulse Rate 63 65 66 Respiratory Rate 20 Blood Pressure 128/79 Pulse Oximetry 97 12/31/17 03:00 12/31/17 04:00 12/31/17 05:00 Temperature 97.8 F Pulse Rate 67 68 65 Respiratory Rate 18 Blood Pressure 114/62 Pulse Oximetry 96 12/31/17 05:56 12/31/17 08:00 12/31/17 09:10 Temperature 98.3 F Pulse Rate 64 67 Respiratory Rate 18 Blood Pressure 125/80 Pulse Oximetry 96 95 Intake & Output 12/30/17 12/31/17 12/31/17 18:59 06:59 18:59 Intake Total 1310 / 1310 240 / 240 Output Total 700 / 700 Balance 1310 / 1310 -460 / -460 Weight 109 kg 115.7 kg Intake: IV 10 / 10 Heparin/NS PF Inj 1,000 ML @ 0 10 / 10 mls/hr .ROUTE .[facility] Rx#: [id number] Oral 100 / 100 240 / 240 Anesthesia Amount 1200 / 1200 Output: Urine 700 / 700 Other: Date of Last Bowel Movement 12/30/17 # Bowel Movements 0 - Constitutional no acute distress - Routine HEENT Exam Head: Present: normocephalic Eye: Present: EOMI, PERRL - Routine Neck Exam Present: supple. Absent: JVD - Routine Respiratory Exam Present: accessory muscle use - Routine Cardiovascular Exam Present: RRR, S1, S2 - Routine Abdominal Exam Present: soft - Routine Extremities Exam Absent: edema - Routine Neurological Exam Present: alert, oriented X3 Results 12/31/17 07:37 12/31/17 07:37 Cardiac Enzymes 12/30/17 12/30/17 12/30/17 Range/Units 08:40 08:40 08:40 CK-MB (CK-2) 1.8 (0.5-3.6) ng/mL Troponin I Less than 0.02 L Less than 0.02 L (0.02-0.05) ng/mL B-Natriuretic Peptide 29 (0-100) pg/mL 12/30/17 12/30/17 Range/Units 16:24 23:42 CK-MB (CK-2) (0.5-3.6) ng/mL Troponin I 20.20 H* 18.40 H* (0.02-0.05) ng/mL B-Natriuretic Peptide (0-100) pg/mL Coagulation 12/30/17 12/30/17 Range/Units 08:40 08:40 PT 10.3 (9.8-11.6) sec APTT 20.9 L (24.3-30.1) sec B-Natriuretic Peptide 29 (0-100) pg/mL Lipids 12/30/17 Range/Units 08:40 Triglycerides 221 H (42-150) mg/dL Cholesterol 93 L (120-200) mg/dL HDL Cholesterol 32.0 L (40.0-60.0) mg/dL Cholesterol/HDL Ratio 2.90 Ratio CBC 12/30/17 12/31/17 Range/Units 08:40 07:37 WBC 11.0 9.7 (4.0-11.0) th/mm3 RBC 4.74 4.63 (4.50-5.90) mil/mm3 Hgb 14.7 14.5 (13.0-17.0) gm/dL Hct 42.9 42.0 (39.0-51.0) % Plt Count 233 185 (150-450) th/mm3 Neut # (Auto) 4.8 6.8 (1.8-7.7) th/mm3 Lymph # (Auto) 3.7 1.3 (1.0-4.8) th/mm3 [place] # (Auto) 1.2 H 0.7 (0.0-0.9) th/mm3 Eos # (Auto) 1.2 H 0.8 H (0.0-0.4) th/mm3 Baso # (Auto) 0.1 0.1 (0.0-0.2) th/mm3 Comprehensive Metabolic Panel 12/30/17 12/31/17 Range/Units 08:40 07:37 Sodium 140 (136-145) meq/L Potassium 3.8 (3.5-5.1) meq/L Chloride 106 (98-107) meq/L Carbon Dioxide 24.8 (21.0-32.0) meq/L BUN 18 (7-18) mg/dL Creatinine 1.44 H (0.60-1.30) mg/dL Calcium 8.0 L 8.8 D (8.5-10.1) mg/dL Intake and Output 12/30/17 12/31/17 12/31/17 22:59 06:59 14:59 Intake Total 100 / 100 240 / 240 Output Total 700 / 700 Balance 100 / 100 -460 / -460 Intake: Oral 100 / 100 240 / 240 Output: Urine 700 / 700 Other: Date of Last Bowel Movement 12/30/17 # Bowel Movements 0 Weight 115.7 kg - Imaging and Cardiology Imaging: Impressions Chest X-Ray 12/30/17 08:38 CONCLUSION: Questionable hazy opacity at the left base could be related to technical factors /artifact or could represent small effusion or airspace opacity. If needed, good inspiratory formal PA and lateral views would likely help differentiate. Assessment and Plan - Assessment (1) ST elevation (STEMI) myocardial infarction involving left anterior descending coronary artery Code(s): I21.02 - Status: Acute Plan: s/p PCI to the LAD x 1 3.0 x 15 Resolute [place]. This was postdilated with a 3.25 balloon. continue ASA, Brilinta 90mg po BID, and coreg 3.125 mg po BID. Awaiting TTE (2) HTN (hypertension) Code(s): I10 - Status: Chronic Plan: Continue to uptitrate Coreg (3) Hyperlipidemia Code(s): E78.5 - Status: Acute Plan: Will reduce dose to 10mg po qhs given LDL is pretty low already.
--- NOTE | 2017-12-31 14:57 | ECHRPT ---
Indication: coronary atherosclerosis CONCLUSIONS Normal left ventricular size. Mild concentric left ventricular hypertrophy. The left ventricular systolic function is moderately reduced with an estimated ejection fraction in the range of 40-45%. the apex appears to be at least moderately hyponkietic, study is technically limited There is trace tricuspid valve regurgitation. The estimated pulmonary arterial pressure is 22 mmHg. trace aortic valve regurgitation BP: / HR: Rhythm: MEASUREMENTS (Male / Female) Normal Values Technical Quality: 2D ECHO LV Diastolic Diameter PLAX 4.0 cm 4.2 - 5.9 / 3.9 - 5.3 cm LV Systolic Diameter PLAX 3.1 cm IVS Diastolic Thickness 1.4 cm 0.6 - 1.0 / 0.6 - 0.9 cm LVPW Diastolic Thickness 1.4 cm 0.6 - 1.0 / 0.6 - 0.9 cm LV Relative Wall Thickness 0.7 RV Internal Dim ED PLAX 3.8 cm LVOT Diameter 2.3 cm Aortic Root Diameter 3.9 cm M-MODE Aortic Root Diameter MM 4.0 cm LA Systolic Diameter MM 4.1 cm LA Ao Ratio MM 1.0 AV Cusp Separation MM 2.6 cm DOPPLER AV Peak Velocity 145.0 cm/s AV Peak Gradient 8.4 mmHg AI Peak Velocity 232.0 cm/s AI Peak Gradient 21.5 mmHg AI Pressure Half Time 433.0 ms LVOT Peak Velocity 103.0 cm/s LVOT Peak Gradient 4.2 mmHg AV Area Cont Eq pk 3.0 cm Mitral E Point Velocity 44.9 cm/s Mitral A Point Velocity 83.9 cm/s Mitral E to A Ratio 0.5 LV E' Lateral Velocity 5.0 cm/s Mitral E to LV E' Lateral Ratio 9.0 LV E' Septal Velocity 4.6 cm/s Mitral E to LV E' Septal Ratio 9.8 TR Peak Velocity 175.0 cm/s TR Peak Gradient 12.3 mmHg Right Atrial Pressure 10.0 mmHg Pulmonary Artery Systolic Pressu 22.3 mmHg Right Ventricular Systolic Press 22.3 mmHg FINDINGS LEFT VENTRICLE Normal left ventricular size. Mild concentric left ventricular hypertrophy. The left ventricular systolic function is moderately reduced with an estimated ejection fraction in the range of 40-45%. RIGHT VENTRICLE Normal right ventricular size and systolic function. LEFT ATRIUM The left atrial size is normal. RIGHT ATRIUM The right atrial size is normal. ATRIAL SEPTUM Normal atrial septal thickness without atrial level shunting by limited color doppler interrogation. AORTA The aortic root and proximal ascending aorta are normal in size on limited imaging. MITRAL VALVE Structurally normal mitral valve. No mitral valve stenosis or regurgitation. AORTIC VALVE Trileaflet aortic valve. No aortic valve stenosis or regurgitation. TRICUSPID VALVE There is trace tricuspid valve regurgitation. The estimated pulmonary arterial pressure is 22 mmHg. PULMONARY VALVE No pulmonary valve regurgitation or stenosis. VESSELS The inferior vena cava is normal in size. PERICARDIUM No pericardial effusion. Garry Orozco MD, FACC, [id number] (Electronically Signed) Final Date:31 December 2017 14:55
[2018-01-01] MEDS ORDERED: Lisinopril 5 MG Tablet PO SCH (10:00)
--- NOTE | 2018-01-01 10:27 | P.PNCA ---
Subjective Interval history: No acute events. No CP. Medications and Allergies Active Medications: Active Medications Aspirin (Ecotrin) 81 mg PO DAILY [facility] Last Admin: 01/01/18 08:42 Dose: 81 mg Atorvastatin Calcium (Lipitor) 10 mg PO HS [facility] Last Admin: 12/31/17 20:50 Dose: 10 mg Carvedilol (Coreg) 3.125 mg PO BID [facility] Last Admin: 01/01/18 08:42 Dose: 3.125 mg Sodium Chloride (Ns Inj) 500 mls @ 150 mls/hr IV.CONT .Q3H20M [facility] Miscellaneous (Pill Splitter) 1 each OTHER UNSCH [facility] Nitroglycerin (Nitro-Bid 2% Oint) 1 inch TOPICAL Q6HR [facility] Last Admin: 01/01/18 06:34 Dose: Not Given Ondansetron HCl (Zofran Inj) 4 mg IV.PUSH Q6H PRN PRN Reason: NAUSEA OR VOMITING Last Admin: 12/31/17 17:17 Dose: 4 mg Sodium Chloride (Ns Inj) 2 ml IV.FLUSH BID [facility] Last Admin: 01/01/18 08:43 Dose: 2 ml Sodium Chloride (Ns Inj) 2 ml IV.FLUSH UNSCH PRN PRN Reason: FLUSH AFTER USING IV ACCESS Ticagrelor (Brilinta) 90 mg PO BID [facility] Last Admin: 01/01/18 08:42 Dose: 90 mg Allergies Allergy/AdvReac Type Severity Reaction Status Date / Time No Known Allergies Allergy Verified 12/30/17 09:16 Home Medications Medication Instructions Recorded Confirmed Type amlodipine 10 mg PO DAILY 12/30/17 12/30/17 History Panax, Citizen Of [place] [id number] 01/01/18 History ascorbic acid-vitamin E-biotin 01/01/18 History [Hair, Skin, Nails with Biotin] atorvastatin 40 mg PO DAILY 01/01/18 01/01/18 History buspirone 10 mg PO BID 01/01/18 01/01/18 History [id number] 01/01/18 01/01/18 History celecoxib 200 mg PO DAILY 01/01/18 01/01/18 History cyanocobalamin-cobamamide [B12] 01/01/18 History diphenhydramine HCl 25 mg PO Q4-6H 01/01/18 01/01/18 History docusate sodium 100 mg PO DAILY 01/01/18 01/01/18 History fenofibrate 54 mg PO DAILY 01/01/18 01/01/18 History ndjoemywivd-awxhpwngy-ifw C-Mn 01/01/18 History [Glucosamine Chondroitin MaxStr] green tea-hoodia gordonii 315 mg 01/01/18 History herbal complex no.174 [Echinacea 01/01/18 History and Goldenseal] melatonin 10 mg PO HS 01/01/18 01/01/18 History niacin (inositol niacinate) 1 cap PO DAILY 01/01/18 01/01/18 History potassium chloride 20 meq PO 01/01/18 History psyllium husk [Fiber (psyllium 01/01/18 History husk)] saw palmetto 320 mg PO DAILY 01/01/18 01/01/18 History telmisartan-hydrochlorothiazid 1 tab PO DAILY 01/01/18 01/01/18 History zaleplon 10 mg PO DAILY 01/01/18 01/01/18 History Physical Exam Vital signs: Vital Signs 12/31/17 11:00 12/31/17 12:00 12/31/17 13:00 Temperature 98.2 F Pulse Rate 62 66 84 Respiratory Rate 18 Blood Pressure 131/79 Pulse Oximetry 97 12/31/17 14:00 12/31/17 15:00 12/31/17 16:00 Temperature 98.0 F Pulse Rate 82 80 86 Respiratory Rate 18 Blood Pressure 146/90 H Pulse Oximetry 96 12/31/17 17:00 12/31/17 18:00 12/31/17 19:00 Temperature Pulse Rate 78 84 78 Respiratory Rate Blood Pressure Pulse Oximetry 98 12/31/17 20:00 12/31/17 21:00 12/31/17 22:00 Temperature 98.7 F Pulse Rate 68 74 72 Respiratory Rate 16 Blood Pressure 139/83 Pulse Oximetry 98 12/31/17 23:00 01/01/18 00:00 01/01/18 01:00 Temperature 99.2 F Pulse Rate 68 72 66 Respiratory Rate 16 Blood Pressure 148/91 H Pulse Oximetry 98 01/01/18 02:00 01/01/18 03:00 01/01/18 04:00 Temperature 98.7 F Pulse Rate 66 67 67 Respiratory Rate 16 Blood Pressure 145/81 H Pulse Oximetry 96 01/01/18 05:00 01/01/18 06:00 01/01/18 07:00 Temperature 97.8 F Pulse Rate 57 L 60 65 Respiratory Rate 14 Blood Pressure 148/91 H Pulse Oximetry 96 Intake & Output 12/31/17 01/01/18 01/01/18 18:59 06:59 18:59 Intake Total 940 / 940 240 / 240 Output Total 700 / 700 Balance 940 / 940 -460 / -460 Weight 118.3 kg Intake: Oral 940 / 940 240 / 240 Output: Urine 700 / 700 Other: # Voids 5 Date of Last Bowel Movement 12/31/17 # Bowel Movements 0 - Constitutional no acute distress - Routine HEENT Exam Head: Present: normocephalic Eye: Present: EOMI ENT: Present: mucous membranes moist - Routine Neck Exam Present: supple. Absent: JVD - Routine Respiratory Exam Present: CTA bilaterally - Routine Cardiovascular Exam Present: RRR, S1, S2 - Routine Abdominal Exam Present: soft, normoactive bowel sounds. Absent: tenderness - Routine Extremities Exam Absent: edema - Routine Neurological Exam Present: alert, oriented X3 - Routine Psychiatric Exam Present: normal affect Results 12/31/17 07:37 12/31/17 07:37 Cardiac Enzymes 12/30/17 12/30/17 12/30/17 Range/Units 08:40 16:24 23:42 Troponin I Less than 0.02 L 20.20 H* 18.40 H* (0.02-0.05) ng/mL Lipids 12/30/17 Range/Units 08:40 Triglycerides 221 H (42-150) mg/dL Cholesterol 93 L (120-200) mg/dL HDL Cholesterol 32.0 L (40.0-60.0) mg/dL Cholesterol/HDL Ratio 2.90 Ratio CBC 12/31/17 Range/Units 07:37 WBC 9.7 (4.0-11.0) th/mm3 RBC 4.63 (4.50-5.90) mil/mm3 Hgb 14.5 (13.0-17.0) gm/dL Hct 42.0 (39.0-51.0) % Plt Count 185 (150-450) th/mm3 Neut # (Auto) 6.8 (1.8-7.7) th/mm3 Lymph # (Auto) 1.3 (1.0-4.8) th/mm3 Camp # (Auto) 0.7 (0.0-0.9) th/mm3 Eos # (Auto) 0.8 H (0.0-0.4) th/mm3 Baso # (Auto) 0.1 (0.0-0.2) th/mm3 Comprehensive Metabolic Panel 12/31/17 Range/Units 07:37 Sodium 140 (136-145) meq/L Potassium 3.8 (3.5-5.1) meq/L Chloride 106 (98-107) meq/L Carbon Dioxide 24.8 (21.0-32.0) meq/L BUN 18 (7-18) mg/dL Creatinine 1.44 H (0.60-1.30) mg/dL Calcium 8.8 D (8.5-10.1) mg/dL Intake and Output 12/31/17 01/01/18 01/01/18 22:59 06:59 14:59 Intake Total 940 / 940 240 / 240 Output Total 700 / 700 Balance 940 / 940 -460 / -460 Intake: Oral 940 / 940 240 / 240 Output: Urine 700 / 700 Other: # Voids 5 Date of Last Bowel Movement 12/31/17 # Bowel Movements 0 Weight 118.3 kg Assessment and Plan - Assessment (1) ST elevation (STEMI) myocardial infarction involving left anterior descending coronary artery Code(s): I21.02 - ST elevation (STEMI) myocardial infarction involving left anterior descending coronary artery Status: Acute Plan: s/p PCI to the LAD x 1 3.0 x 15 Resolute [place]. This was postdilated with a 3.25 balloon. continue ASA, Brilinta 90mg po BID, and coreg 3.125 mg po BID. Echo shows EF 40-45% Plan to start lisinopril and spirinolactone (ant [place]) pending BMP (2) HTN (hypertension) Code(s): I10 - Essential (primary) hypertension Status: Chronic Plan: increase coreg and start lisinopril (3) Hyperlipidemia Code(s): E78.5 - Hyperlipidemia, unspecified Status: Acute Plan: reduce the dose of lipitor, will need to reconcile what he was on at home as his LDL is 17
[2018-01-01] MEDS: Sod Chloride 0.9% Inj 500 ML IV.CONT SCH ×3 (11:20→21:25)
[2018-01-01] MEDS ORDERED: Glycerin Adult 2 GM Supp RECTAL ONE (13:30)
--- NOTE | 2018-01-01 18:01 | ECG ---
Date Performed: 12/31/2017 Time Performed: 18:56:24 PTAGE: 67 years EKG: Sinus rhythm . Left anterior fascicular block Possible anteroseptal infarct - age undetermined Lateral T wave buckley ges may be due to myocardial ischemia Compared to previous tracing, anteroseptal ST elevation remains . Clinical correlation is recommended Abnormal ECG PREVIOUS TRACING : 12/30/2017 08.34 DOCTOR: Vernon Sandoval Interpretating Date/Time 01/01/2018 18:00:05
[2018-01-01 20:33] LABS: Calcium 9.2 mg/dL (8.5-10.1); Carbon Dioxide 22.4 meq/L (21.0-32.0); Potassium 3.6 meq/L (3.5-5.1)
[2018-01-01] MEDS: Lisinopril 5 MG Tablet PO SCH (21:49)
[2018-01-02] MEDS: Sod Chloride 0.9% Inj 500 ML IV.CONT SCH ×5 (00:41→15:00)
[2018-01-02 04:02] VITALS: TEMP 98.4
[2018-01-02 05:50] LABS: Calcium 8.3 mg/dL (8.5-10.1); Carbon Dioxide 24.8 meq/L (21.0-32.0); Potassium 3.4 meq/L (3.5-5.1)
[2018-01-02 07:37] VITALS: O2SAT 98
[2018-01-02] MEDS: Lisinopril 5 MG Tablet PO SCH (09:22)
[2018-01-02] MEDS ORDERED: Spironolactone 25 MG Tablet PO SCH (10:45)
--- NOTE | 2018-01-02 10:47 | P.PNCA ---
Subjective Interval history: No acute events. Medications and Allergies Active Medications: Active Medications Aspirin (Ecotrin) 81 mg PO DAILY [facility] Last Admin: 01/02/18 09:22 Dose: 81 mg Atorvastatin Calcium (Lipitor) 10 mg PO HS [facility] Last Admin: 01/01/18 21:48 Dose: 10 mg Carvedilol (Coreg) 6.25 mg PO BID [facility] Diphenhydramine HCl (Benadryl) 25 mg PO Q6HR PRN PRN Reason: ALLERGIES Sodium Chloride (Ns Inj) 500 mls @ 150 mls/hr IV.CONT .Q3H20M [facility] Last Admin: 01/02/18 06:06 Dose: Not Given Lisinopril (Prinivil) 2.5 mg PO DAILY [facility] Last Admin: 01/02/18 09:22 Dose: 2.5 mg Miscellaneous (Pill Splitter) 1 each OTHER UNSCH [facility] Nitroglycerin (Nitro-Bid 2% Oint) 1 inch TOPICAL Q6HR [facility] Last Admin: 01/02/18 05:50 Dose: Not Given Ondansetron HCl (Zofran Inj) 4 mg IV.PUSH Q6H PRN PRN Reason: NAUSEA OR VOMITING Last Admin: 12/31/17 17:17 Dose: 4 mg Sodium Chloride (Ns Inj) 2 ml IV.FLUSH BID [facility] Last Admin: 01/02/18 09:23 Dose: 2 ml Sodium Chloride (Ns Inj) 2 ml IV.FLUSH UNSCH PRN PRN Reason: FLUSH AFTER USING IV ACCESS Spironolactone (Aldactone) 25 mg PO DAILY [facility] Ticagrelor (Brilinta) 90 mg PO BID [facility] Last Admin: 01/02/18 09:21 Dose: 90 mg Allergies Allergy/AdvReac Type Severity Reaction Status Date / Time No Known Allergies Allergy Verified 12/30/17 09:16 Home Medications Medication Instructions Recorded Confirmed Type amlodipine 10 mg PO DAILY 12/30/17 12/30/17 History Panax, [place] [id number] 01/01/18 History ascorbic acid-vitamin E-biotin 01/01/18 History [Hair, Skin, Nails with Biotin] atorvastatin 40 mg PO DAILY 01/01/18 01/01/18 History buspirone 10 mg PO BID 01/01/18 01/01/18 History joepwqa-ieowftdff-xdja 01/01/18 01/01/18 History celecoxib 200 mg PO DAILY 01/01/18 01/01/18 History cyanocobalamin-cobamamide [B12] 01/01/18 History diphenhydramine HCl 25 mg PO Q4-6H 01/01/18 01/01/18 History docusate sodium 100 mg PO DAILY 01/01/18 01/01/18 History fenofibrate 54 mg PO DAILY 01/01/18 01/01/18 History teqrhdirxix-xiesvgqkr-xfs C-Mn 01/01/18 History [Glucosamine Chondroitin MaxStr] green tea-hoodia gordonii 315 mg 01/01/18 History herbal complex no.174 [Echinacea 01/01/18 History and Goldenseal] melatonin 10 mg PO HS 01/01/18 01/01/18 History niacin (inositol niacinate) 1 cap PO DAILY 01/01/18 01/01/18 History potassium chloride 20 meq PO 01/01/18 History psyllium husk [Fiber (psyllium 01/01/18 History husk)] saw palmetto 320 mg PO DAILY 01/01/18 01/01/18 History telmisartan-hydrochlorothiazid 1 tab PO DAILY 01/01/18 01/01/18 History zaleplon 10 mg PO DAILY 01/01/18 01/01/18 History Physical Exam Vital signs: Vital Signs 01/01/18 11:00 01/01/18 12:00 01/01/18 13:00 Temperature 98.0 F Pulse Rate 77 82 82 Respiratory Rate 16 Blood Pressure 138/95 H Pulse Oximetry 96 01/01/18 14:00 01/01/18 16:00 01/01/18 17:00 Temperature 98.0 F Pulse Rate 72 72 78 Respiratory Rate 18 Blood Pressure 155/97 H Pulse Oximetry 98 01/01/18 18:00 01/01/18 19:00 01/01/18 20:00 Temperature 98.6 F Pulse Rate 74 76 78 Respiratory Rate 18 Blood Pressure 142/98 H Pulse Oximetry 97 01/01/18 21:00 01/01/18 22:00 01/01/18 23:00 Temperature Pulse Rate 71 75 74 Respiratory Rate Blood Pressure Pulse Oximetry 01/02/18 00:00 01/02/18 01:00 01/02/18 02:00 Temperature 98.2 F Pulse Rate 73 90 73 Respiratory Rate 18 Blood Pressure 143/85 H Pulse Oximetry 98 01/02/18 03:00 01/02/18 04:00 01/02/18 05:00 Temperature 98.4 F Pulse Rate 80 79 66 Respiratory Rate 18 Blood Pressure 148/93 H Pulse Oximetry 97 01/02/18 06:00 01/02/18 07:00 01/02/18 07:35 Temperature Pulse Rate 62 60 70 Respiratory Rate Blood Pressure Pulse Oximetry 01/02/18 07:37 01/02/18 08:17 01/02/18 09:00 Temperature 98.4 F Pulse Rate 70 82 62 Respiratory Rate 16 Blood Pressure 148/90 H Pulse Oximetry 98 01/02/18 10:00 Temperature Pulse Rate 66 Respiratory Rate Blood Pressure Pulse Oximetry Intake & Output 01/01/18 01/02/18 01/02/18 18:59 06:59 18:59 Intake Total 1480 / 1480 240 / 240 Output Total 750 / 750 775 / 775 Balance 730 / 730 -535 / -535 Weight 118.1 kg Intake: IV 500 / 500 NS Inj 500 ML @ 150 mls/hr IV. 500 / 500 CONT .Q3H20M [facility] Rx#:[id number] Oral 980 / 980 240 / 240 Output: Urine 750 / 750 775 / 775 Other: Date of Last Bowel Movement 01/01/18 - Constitutional no acute distress - Routine HEENT Exam Head: Present: normocephalic Eye: Present: EOMI, PERRL - Routine Neck Exam Present: supple, full ROM. Absent: JVD - Routine Respiratory Exam Present: CTA bilaterally - Routine Cardiovascular Exam Present: RRR, S1, S2 - Routine Abdominal Exam Present: soft, normoactive bowel sounds - Routine Extremities Exam Absent: edema - Routine Skin Exam Absent: erythema - Routine Neurological Exam Present: alert, oriented X3, CN II-XII intact - Routine Psychiatric Exam Present: normal affect Results 12/31/17 07:37 01/02/18 04:01 Comprehensive Metabolic Panel 01/01/18 01/02/18 Range/Units 18:32 04:01 Sodium 139 143 (136-145) meq/L Potassium 3.6 3.4 L (3.5-5.1) meq/L Chloride 105 106 (98-107) meq/L Carbon Dioxide 22.4 24.8 (21.0-32.0) meq/L BUN 22 H 21 H (7-18) mg/dL Creatinine 1.45 H 1.30 (0.60-1.30) mg/dL Calcium 9.2 8.3 L D (8.5-10.1) mg/dL Intake and Output 01/01/18 01/02/18 01/02/18 22:59 06:59 14:59 Intake Total 1240 / 1240 240 / 240 Output Total 750 / 750 775 / 775 Balance 490 / 490 -535 / -535 Intake: IV 500 / 500 NS Inj 500 ML @ 150 mls/hr IV. 500 / 500 CONT .Q3H20M [facility] Rx#:[id number] Oral 740 / 740 240 / 240 Output: Urine 750 / 750 775 / 775 Other: Date of Last Bowel Movement 01/01/18 01/01/18 Weight 118.1 kg Assessment and Plan - Assessment (1) ST elevation (STEMI) myocardial infarction involving left anterior descending coronary artery Code(s): I21.02 - ST elevation (STEMI) myocardial infarction involving left anterior descending coronary artery Status: Acute Plan: s/p PCI to the LAD x 1 3.0 x 15 Resolute [place]. This was postdilated with a 3.25 balloon. continue ASA, Brilinta 90mg po BID, and coreg 3.125 mg po BID. Echo shows EF 40-45% start lisinopril 2.5 mg po qday uptitrate coreg to 6.25mg start spirinolactone 25 mg po qday. (2) HTN (hypertension) Code(s): I10 - Essential (primary) hypertension Status: Chronic Plan: increase coreg 6.25 mg po BIDl (3) Hyperlipidemia Code(s): E78.5 - Hyperlipidemia, unspecified Status: Acute Plan: continue 10mg po qhs
[2018-01-02 18:22] VITALS: BP 146/70; RESP 20
[2018-01-02 18:24] VITALS: PULSE 70
[2018-01-02] MEDS ORDERED: Carvedilol 6.25 MG Tablet PO SCH (21:00)
== END 2018-01-02 14:00 | disposition home or self-care (01) ==
LOC: NEPE 08:31 → NEDA 08:47 → HCIS 10:54
PROVIDERS: ADMIT Internal Medicine Cardiovascular Disease; ATTEND Internal Medicine Cardiovascular Disease